=== PATIENT | male | born 1985 | race African-American/Black ===

== ENCOUNTER 2023-04-12 07:59 | Outpatient (RCR) | payer OTHER ==
[~2023-04-12 07:59] MED LIST: AMOXICILLIN 25250 MG; CATAPRES 0.1MG0.1 MG PO; HYGROTON 2525 MG/TAB PO; IPRATROPIUM BROM3 M1 IH; LASIX 20MG TABL20 MG PO; NORCO 325 MG-51 TAB PO; NORVASC 10MG10 MG PO; PEPCID 20MG TAB20 MG PO; PRINIVIL40 MG PO; PRINZIDE 12.5 M1 TAB PO; ROBITUSSIN A-C S1 M1 PO; ROXICODONE 55 MG/TAB PO
== END 2023-04-20 ==
LOC: WSOH
DX: S56.211 Strain of other flexor muscle, fascia and tendon at forearm level, right arm (principal); Y99.0 Civilian activity done for income or pay; I11.9 Hypertensive heart disease without heart failure; R73.03 Prediabetes